=== PATIENT | female | born 1955 | race Two or more races ===

== ENCOUNTER → 2018-05-05 | Day surgery (SDC) | payer OTHER ==
--- NOTE | 2018-05-11 17:05 | PATH ---
Surgical Pathology Report Patient Name: BENITO THOMASON [facility]. Rec. #: [id number] /Age/Gender: 1955 (Age: 62) / F Account: [id number] Location: [facility] Taken: 05/05/2018 Received: 05/05/2018 Reported: 05/11/2018 Physicians: Brittney Muhammad M.D. Specimen(s) Received LEFT AXILLA 3 CORES BIOPSY ALSO RECEIVED TISSUE IN RPMI Clinical History Nonpalpable lesion Ultrasound findings: Probably benign Final Diagnosis AXILLARY LYMPH NODE, LEFT, CORE BIOPSY: FRAGMENTS OF LYMPHOID TISSUE AND FIBROADIPOSE TISSUE. NO EVIDENCE OF LYMPHOMA IN THE SAMPLE ANALYZED. SEE COMMENT. Comment: Histologic sections reveal fragments of fibroadipose tissue and lymphoid tissue, likely representing lymph node. The lymphoid tissue is composed of some variably sized and shaped lymphoid follicles with reactive-appearing germinal centers. The sinuses are present. There is focal expansion of monocytoid lymphocytes with abundant clear cytoplasm. No atypical large cell expansion of large Hodgkin-like cells are noted. Immunostains show that the germinal centers are CD10 positive, BCL-6 positive and BCL-2 negative, indicative of a reactive nature. Monocytoid lymphocytes are positive for CD20 and PAX5, while negative for CD5, CD10 and BCL-2, indicative of focal marginal zone cell hyperplasia. AE1/AE3 is negative. Concurrent lymphoproliferative flow panel performed and interpreted at [facility], [place], [place] (Specimen #: [id number]) shows no evidence of B or T-cell lymphoma. In summary, in the sample analyzed, there is no evidence of lymphoma. The findings correlate with the flow cytometry study. Clinical correlation is recommended. Case sent for consultation to Dr. Mirtha Treviño from [facility] (Specimen #: [id number]), the diagnosis above reflects his opinion. See [facility] report (Specimen #: [id number]) for additional details. Electronically Signed Laurita Frost M.D. Gross Description Received in formalin labeled "left axilla," are 3 marin-yellow, cylindrical portions of fibroadipose tissue ranging from 1.3-1.6 cm in length and averaging 0.1 cm in diameter. The specimens are submitted in toto in one cassette. There is additional tissue received in RPMI solution which is sent for flow cytometry. Time to formalin fixation: Less than one minute Total formalin fixation time: Approximately 6 hours. 05/05/201805/05/2018
== END | disposition home or self-care (01) ==
LOC: JRADUS-SUR 10:18 → JRADUS 10:18
PROVIDERS: ATTEND Family Medicine
PROC: 07B63ZX Excision of Left Axillary Lymphatic, Percutaneous Approach, Diagnostic (ICD-10-PCS; principal; 2018-05-05)
DX: D36.0 Benign neoplasm of lymph nodes (principal)
CPT/HCPCS: 19083; 87899; 88305-TC; 88342-TC; A4648

== ENCOUNTER 2018-11-09 09:28 | Emergency (ER) | payer OTHER | END 2018-11-09 16:17 | disposition home or self-care (01) | LOC: JER 09:28 ==

== ENCOUNTER 2023-10-17 08:29 | Emergency (ER) | payer OTHER ==
[2023-10-17 08:37] VITALS: BP 145/66; PULSE 54; RESP 18; TEMP 98.4; BMI 29.8
== END 2023-10-17 10:02 | disposition home or self-care (01) ==
LOC: JERFT 08:29
DX: R22.2 Localized swelling, mass and lump, trunk (principal)
CPT/HCPCS: 99282-25